=== PATIENT | female | born 1975 | race Asian ===

== ENCOUNTER 2016-10-26 19:51 | Emergency (ER) | payer OTHER ==
[~2016-10-26] VITALS: Ht 182.9 cm; Wt 86.2 kg
[~2016-10-26 19:51] MED LIST: WARF1TAB7 PO
[2016-10-26 21:01] VITALS: BP 136/97; TEMP 98.1
== END 2016-10-26 21:03 | disposition home or self-care (01) ==
LOC: ED 19:51
DX: K59.03 Drug induced constipation (principal); T40.2X5A Adverse effect of other opioids, initial encounter
CPT/HCPCS: 99282